=== PATIENT | female | born 1965 | race Caucasian/White ===

== ENCOUNTER 2016-11-10 23:15 | Emergency (ER) | payer OTHER ==
--- NOTE | 2016-11-10 23:20 | ED Physician Chart ---
Chief Complaint/HPI - Patient Information Date Seen:: 11/10/16 Time Seen:: 23:19 Chief Complaint:: chest pain History of Present Illness:: 51-year-old female history of diabetes, complains of acute, constant, moderate, nonradiating, 5 out of 10, pressure-like chest pain 4 days. Has associated nausea but no vomiting. Patient took aspirin prior to arrival. Historian:: Patient Review:: Nurse's Note Reviewed Review of Systems - Review of Systems Other: Complete system review otherwise unremarkable except as noted in history of present illness. Past Medical History - Past Medical History Past Medical History: HTN, DM, Dyslipidemia Family History: None Social History: Non Smoker, No Alcohol, No Drug Use, Surgical History: None Psychiatricy History: None Medication: Reviewed Family Medical History - Family Member Father Ethnicity: Non- Hx Family Cancer: No Hx Family Coronary Artery Disease: No Hx Family Congestive Heart Failure: No Hx Family Hypertension: Yes Physical Exam - Physical Examination Other:: INITIAL VITAL SIGNS: Reviewed by me GENERAL: Alert and interactive. No acute distress HEAD: Head is normocephalic and atraumatic EYES: EOMI. PERRL. No scleral icterus. No conjunctival injection ENT: Moist mucous membranes. NECK: Supple. No masses. Full range of motion RESPIRATORY: No tachypnea. Clear breath sounds bilaterally. No wheezing, rales, or rhonchi CV: Regular rate and rhythm. No murmurs, rubs, or gallops ABDOMEN: Soft, non-distended, non-tender. No guarding. No rebound. No masses. EXTREMITIES: No deformity. No cyanosis. No edema. SKIN: Warm and dry. No obvious rashes. NEUROLOGIC: Alert and oriented. Face is symmetric. Speech is normal. Moves all extremities equally. Motor and sensory distally intact. Labs/Radiology/EKG Results - Radiology Results Results: Single AP VIEW Portable Chest X-ray was interpreted independently and contemporaneously by Cynthia Garibay MD: No cardiomegaly Normal mediastinum No lung infiltrates No pneumothorax No soft tissue or bony abnormalities - EKG Interpretations Comments:: 12-lead EKG Interpretation by Cynthia Garibay MD: Normal Sinus Rhythm with ventricular rate of 67 beats per minute Normal axis Normal intervals No acute ST or T wave changes. No obvious STEMI ED Septic Shock - . Is Septic Shock (SBP<90, OR Lactate>4 mmol\L) present?: No Reassessment (Disposition) - Reassessment Reassessment:: Labs essentially unremarkable. Patient reported taking aspirin prior to arrival. Troponins are negative. Patient having acute chest pain unspecified. Did give IV antiemetics which improved the nausea. Also gave IV fluids. Prescribed Zofran ODT for the nausea. Recommended follow-up with PCP 1-2 days. Gave return to ER precautions. Patient says she understands and agrees the plan. Reassessment Condition:: Improved - Diagnosis Diagnosis:: Acute chest pain unspecified Nausea unspecified Diabetes mellitus type 2 Hypertension - Aftercare/Follow up Instructions Aftercare/Follow-Up Instructions:: Counseled pt regarding lab results/diagnosis & need follow up, Refer to Discharge Instructions Medication Prescribed:: Zofran - Patient Disposition Discharge/Transfer:: Home ED Discharge Plan - Patient Disposition Admit/Discharge/Transfer: PT DISCHARGED HOME Condition at Disposition: Improved Instructions: Nausea, Adult
[2016-11-10 23:38] LABS: % BASOPHILS 0.2 % (0.0-2.0); % EOSINOPHILS 0.9 % (0.0-5.0); % MONOCYTES 5.8 % (2.0-10.0); % NEUTROPHILS 58.1 % (40.0-80.0); HEMATOCRIT 42.6 % (35.0-45.0); HEMOGLOBIN 14.3 gm/dL (11.7-15.5); MEAN CELL VOLUME 81.9 fl (81-100); MEAN CORPUSCULAR HEMOGLOBIN 27.4 pg (27.0-31.0); MEAN CORPUSCULAR HGB CONC 33.5 pg (28.0-36.0); MEAN PLATELET VOLUME 9.5 fl; NEUTROPHILE ABSOLUTE 5.5 Th/cmm (1.8-8.0); PLATELET COUNT 239 Th/cmm (150-400); RED CELL DISTRIBUTION WIDTH 12.3 % (11.5-20.0); WHITE BLOOD COUNT 9.6 Th/cmm (4.8-10.8)
[2016-11-10] MEDS ORDERED: Prochlorperazine 5 mg/mL 2mL Vial IVP STA (23:46)
[2016-11-10 23:54] LABS: INR 0.88 (0.5-1.4)
[2016-11-10 23:55] LABS: ALB/GLOB RATIO 1.4 (1.0-1.8); ALKALINE PHOSPHATASE 56 U/L (34-104); ANION GAP 9.2 (7.0-16.0); BILIRUBIN,TOTAL 0.3 mg/dL (0.3-1.0); BUN - UREA NITROGEN 16 mg/dL (7-25); BUN/CREATININE RATIO 26.7; CALCIUM SERUM 10.5 mg/dL (8.6-10.3); CARBON DIOXIDE 24.5 mEq/L (21.0-31.0); CHLORIDE 102 mEq/L (98-107); CHOLESTEROL 159 mg/dL (<200); CREATININE - SERUM 0.6 mg/dL (0.6-1.2); GLUCOSE 201 mg/dL (70-105); POTASSIUM SERUM 3.7 mEq/L (3.5-5.1); SGOT 10 U/L (13-39); SGPT/ALT 13 U/L (7-52); SODIUM SERUM 132 mEq/L (136-145); TRIGLYCERIDES 180 mg/dL (<150)
[2016-11-11] MEDS ORDERED: Sodium Chloride 0.9% 500 ML IV ONE (00:03)
[2016-11-11 00:06] LABS: TROP I < 0.01 ng/mL (0.01-0.05)
[2016-11-11 00:07] LABS: BNP 6.9 pg/mL (5.0-100.0)
--- NOTE | 2016-11-11 09:14 | Diagnostic Imaging Report ---
CHEST X-RAY: AP view INDICATION: Chest pain COMPARISON: None FINDINGS: Postsurgical changes of the right axillary region are noted. No focal consolidation or effusions. Left basal subsegmental atelectasis versus scarring is noted. Heart size normal. Osseous structures are intact. IMPRESSION: Left basal subsegmental atelectasis versus scarring. No focal consolidation identified. Postsurgical changes of the right axillary region.
== END 2016-11-11 01:00 | disposition home or self-care (01) ==
LOC: ER 23:15
DX: R07.89 Other chest pain (principal); R11.0 Nausea; E11.9 Type 2 diabetes mellitus without complications; I10 Essential (primary) hypertension; E78.5 Hyperlipidemia, unspecified
CPT/HCPCS: 36415-UA; 71010-TC; 80053-TC; 80061-TC; 82550-TC; 83036-90; 83880-TC; 84484-TC; 85025-TC; 85610-TC; 93005; 96374; 96375; J2060; J2405; J7040